=== PATIENT | male | born 1965 | race Caucasian/White ===

== ENCOUNTER → 2017-02-13 | Outpatient (CLI) | payer OTHER ==
[~2017-02-13] MED LIST: BUPR-79 PO; CLX40 PO; CYAN10005 PO; ERGO1CAP35 PO; OMEG10007 PO; PRT/40 PO
[2017-02-13 09:59] LABS: BASO % 0.4 %; BASO ABS # 0.04 K/uL (0-0.2); COMPLETE YES; EOS % 2.5 %; HEMATOCRIT 44.8 % (42-52); IG% 0.3 %; LYMPH % 26.9 %; LYMPH ABS # 2.52 K/uL (1.2-3.4); MEAN CELL VOLUME 92.4 fL (80-100); MEAN CORPUSCULAR HEMOGLOBIN 30.7 pg (25-34); MEAN CORPUSCULAR HGB CONC 33.3 g/dl (32-36); MEAN PLATELET VOLUME 10.4 fL (7.4-10.4); MONO % 9.1 %; NEUT % 60.8 %; PLATELET COUNT 310 K/uL (130-400); RED BLOOD COUNT 4.85 M/uL (4.7-6.1); WHITE BLOOD COUNT 9.37 K/uL (4.8-10.8)
[2017-02-13 11:14] LABS: ALT/SGPT 42 U/L (12-78); BLOOD UREA NITROGEN 13 mg/dl (7-18); BUN/CREATININE RATIO 9.5 (10-20); CALCIUM 9.4 mg/dl (8.5-10.1); CARBON DIOXIDE 25 mmol/L (21-32); CHLORIDE 103 mmol/L (98-107); CHOLESTEROL 188 mg/dl (0-200); GLUCOSE 102 mg/dl (70-99); SODIUM 138 mmol/L (136-145); TRIGLYCERIDES 170 mg/dl (0-150); VERY LOW DENSITY LIPOPROT CALC 34 mg/dl
[2017-02-13 11:18] LABS: ALB/GLOB RATIO 1.1 (0.9-2); ALKALINE PHOSPHATASE 36 U/L (45-117); AST/SGOT 31 U/L (15-37); CHOLESTEROL/HDL RATIO 4.6; HDL CHOLESTEROL 41 mg/dl; LDL CHOLESTEROL CALCULATED 113 mg/dl
== END | disposition home or self-care (01) ==
LOC: C.LAB1850 09:04
PROVIDERS: ATTEND Internal Medicine
DX: E78.5 Hyperlipidemia, unspecified (principal); E53.8 Deficiency of other specified B group vitamins; K76.0 Fatty (change of) liver, not elsewhere classified; E55.9 Vitamin D deficiency, unspecified

== ENCOUNTER → 2017-08-16 | Outpatient (CLI) | payer OTHER ==
[~2017-08-16] MED LIST changes: +PANT40TA2 PO; -PRT/40 PO
[2017-08-16 10:49] LABS: ALBUMIN 3.9 gm/dl (3.4-5.0); ALT/SGPT 38 U/L (12-78); BLOOD UREA NITROGEN 21 mg/dl (7-18); CARBON DIOXIDE 24 mmol/L (21-32); CHOLESTEROL 180 mg/dl (0-200); CREATININE 1.07 mg/dl (0.60-1.40); GLUCOSE 118 mg/dl (70-99); SODIUM 139 mmol/L (136-145)
[2017-08-16 10:52] LABS: ALKALINE PHOSPHATASE 41 U/L (45-117); AST/SGOT 23 U/L (15-37); LDL CHOLESTEROL CALCULATED 107 mg/dl; TOTAL PROTEIN 8.1 gm/dl (6.4-8.2)
== END | disposition home or self-care (01) ==
LOC: C.LAB1850 09:23
PROVIDERS: ATTEND Internal Medicine
DX: K76.0 Fatty (change of) liver, not elsewhere classified (principal)

== ENCOUNTER 2018-07-21 15:11 | Observation (INO) ==
[2018-07-21] MEDS ORDERED: ONDANSETRON INJ 2 MG/ML 2 ML VIAL IV STA (15:38)
[2018-07-21] MEDS ORDERED: SODIUM CHLORIDE 0.9% 1000ML 1,000 ML IV STA (15:38)
[2018-07-21] MEDS ORDERED: MoRPHine SULFATE 4 MG/ML 1 ML CARP\\VIAL IV STA ×2 (15:38→17:00)
[2018-07-21 15:54] LABS: Appearance Urine Clear (Clear); Bilirubin Urine Negative (Negative); Color Urine Yellow; Glucose Urine UA Negative (Negative); Ketones Urine Negative (Negative); Leukocyte Esterase Urine Negative (Negative); Nitrite Urine Negative (Negative); Protein Urine Negative (Negative); Urobilinogen Urine Negative (Negative)
--- NOTE | 2018-07-21 15:55 | Emergency Department Note ---
History of Present Illness General Chief Complaint: Back Pain/Injury Stated Complaint: BACK PAIN Source: patient Mode of arrival: ambulatory Limitations: no limitations History of Present Illness Provider Complaint: other (Right flank pain) Onset (ago): hour(s) 5 Duration: constant Similar Symptoms Previously: No Location: right flank Quality: + other (Severe and constant) Radiation: abdomen Severity: severe Maximum Pain Intensity: 9 Relieved By: + none Exacerbated By: + movement Context: + other (Sitting at rest getting a haircut) Associated symptoms: + chills and + other (Nausea without vomiting); no weakness , no fatigue, no syncope, no numbness, no difficulty walking, no loss of sensation in lower extremities, no increased urinary urgency, no increased urinary frequency, no urinary incontinence, no fecal incontinence, no a change in bowel habits, no dysuria, no hematuria, no parasthesias, no arthralgias and no myalgias Treatments prior to arrival: none Mr. Nguyen is a 53-year-old white male who ambulates into the ED accompanied by a female friend complaining of severe back pain. Patient reports approximately 5 hours prior to arrival at the hospital he was sitting in a chair getting a haircut and developed an acute onset of right flank pain. Since that time his pain has been constant. He has difficulty describing the pain except for "severe." The pain is radiating around the right mid quadrant and lower quadrant. He reports movement of his right back, CVA percussion and palpation of the right mid quadrant and lower quadrant abdomen increases his discomfort. He has not identified any alleviating factors related to his discomfort. He has not taken any medications for his discomfort prior to arrival at the hospital. Associated with his discomfort he has been nauseated, has had chills and has had one episode of diaphoresis; he does not know if he has had a fever. Patient denies upper respiratory symptoms, chest pain, shortness of breath, decreased appetite, urinary symptoms, hematuria, radiation of discomfort into the lower legs, genital paresthesias, bowel and bladder dysfunction, lower extremity weakness/numbness/tingling, diarrhea, constipation, rectal bleeding, black/tarry stools. Home Medications Home Medications Medication Instructions Recorded Confirmed Type bupropion HCl 150 mg PO BID 06/07/18 07/21/18 History cholecalciferol (vitamin D3) 50,000 unit PO WK 06/07/18 07/21/18 History [Optimal D3] citalopram 40 mg PO QAM 06/07/18 07/21/18 History fenofibrate nanocrystallized 145 mg PO QAM 06/07/18 07/21/18 History omega-3 fatty acids-fish oil [Fish 2 cap PO QAM 06/07/18 07/21/18 History Oil] pantoprazole 40 mg PO QAM 06/07/18 07/21/18 History Allergies Allergy/AdvReac Type Severity Reaction Status Date / Time No Known Allergies Allergy Verified 07/21/18 15:30 Past Med/Surg History Medical History Anxiety Depression GERD (gastroesophageal reflux disease) Hyperlipidemia Sleep apnea wears mouth guard, no CPAP Surgical History History of appendectomy History of tooth extraction wisdom teeth Hx of abdominal surgery ruptured spleen "procedure to stop bleeding, filled with foam", was not removed Hx of vasectomy Family History Brother Family history of diabetes mellitus Mother Family history of diabetes mellitus Social History Current Living Situation: Significant Other Current Living Situation Comment: lives with girlfriend Feels Safe at Home: Yes Smoking Status: Never smoker Tobacco Type: smokeless tobacco Hx Alcohol Use: Yes Alcohol type: beer Alcohol Intake Frequency: 3 or more drinks per day Hx Substance Use: No Beliefs That Will Affect Care: None Preferred Language: Malay Communication Ability: Effective Review of Systems A total of 10 systems reviewed and were otherwise negative Physical Exam Vital Signs Vital Signs - 24 hr 07/21/18 15:20 07/21/18 16:03 07/21/18 16:18 Temperature 36.8 C Temperature Source Oral Sepsis Recent Fever Within 48 Hours No Sepsis New/Unexplained Change in Mental Status No Sepsis Action Taken by Nursing No Action Required Pulse Rate 60 Pulse Rate [Left Finger] 56 L Respiratory Rate 18 16 Blood Pressure 166/94 H Blood Pressure [Left Arm] 125/69 Blood Pressure Mean 118 Blood Pressure Mean [Left Arm] 87 Pulse Oximetry 97 92 95 Oxygen Delivery Method Room Air Room Air Room Air 07/21/18 18:02 07/21/18 18:58 07/21/18 20:00 Temperature Temperature Source Sepsis Recent Fever Within 48 Hours Sepsis New/Unexplained Change in Mental Status Sepsis Action Taken by Nursing Pulse Rate Pulse Rate [Left Finger] 61 61 64 Respiratory Rate 20 18 18 Blood Pressure Blood Pressure [Left Arm] 122/73 133/81 144/77 H Blood Pressure Mean Blood Pressure Mean [Left Arm] 89 98 99 Pulse Oximetry 95 98 Oxygen Delivery Method Room Air Room Air 07/21/18 20:52 Temperature Temperature Source Sepsis Recent Fever Within 48 Hours Sepsis New/Unexplained Change in Mental Status Sepsis Action Taken by Nursing Pulse Rate 55 L Pulse Rate [Left Finger] Respiratory Rate 19 Blood Pressure 130/68 Blood Pressure [Left Arm] Blood Pressure Mean Blood Pressure Mean [Left Arm] Pulse Oximetry 94 Oxygen Delivery Method Room Air Constitutional well developed, well nourished, + acute distress, + well hydrated, healthy appearing, cooperative and + overweight; no physical limitations and not diaphoretic Eyes PERRL, conjunctivae normal, anicteric sclerae Neck normal visual inspection and trachea midline Respiratory normal respiratory effort, lungs clear to auscultation Auscultation: no rales, no rhonchi, no wheezes and no pleural rub Cardiovascular Vessels: no JVD Gastrointestinal (Abdomen) Inspection/Auscultation: abdomen normal to inspection and normal bowel sounds; abdomen not distended, no abdominal wall ecchymosis and no visible herniation Percussion/Palpation: + abdomen tender (Right mid quadrant and right lower quadrant) and abdomen soft; no guarding, abdomen not rigid, no hepatosplenomegaly, no hernia and no ascites Musculoskeletal Head/Neck/Chest: normocephalic and head atraumatic Spine: + thoracic spine abnormal to inspection and + lumbar spine abnormal to inspection; no lumbar spinal tenderness and no paraspinal tenderness Extremities: + extremities abnormal to inspection Gait: normal gait Skin no rashes, warm and dry Trauma: no evidence of skin trauma Neurologic awake; not confused Speech / Cognition: normal speech Motor/Sensory: no tremor and no sensory deficit Psychiatric Orientation: alert, oriented x 3 and cooperative Apperance: appropriately dressed Eye Contact: good eye contact Motor Behavior: steady gait and station Speech: speech normal rate, rhythm, volume Genitourinary + CVA tenderness (Right-sided only) Course Administered Medications Discontinued Medications Sodium Chloride (Nss 1000ml) 1,000 mls @ 999 mls/hr IV .Q1H1M STA Stop: 07/21/18 16:38 Last Infusion: 07/21/18 17:18 Dose: 0 mls/hr Admin: 07/21/18 16:12 Dose: 999 mls/hr Morphine Sulfate (Morphine Sulfate) 4 mg IV NOW STA Stop: 07/21/18 15:39 Last Admin: 07/21/18 16:11 Dose: 4 mg Morphine Sulfate (Morphine Sulfate) 4 mg IV NOW STA Stop: 07/21/18 17:01 Last Admin: 07/21/18 17:07 Dose: 4 mg Ondansetron HCl (Zofran) 4 mg IV NOW STA Stop: 07/21/18 15:39 Last Admin: 07/21/18 16:11 Dose: 4 mg Medical Decision Making Differential Diagnosis renal colic, pyelonephritis, AAA, muscular strain, infection and gastrointestinal Medical Records Attestation: I reviewed the patient's medical records. Laboratory Data Attestation: I reviewed the patient's lab results. CBC shows a leukocytosis of 15.97 with a left shift and bandemia, no anemia or platelet dysfunction. BMP: Shows no electrolyte abnormality or renal dysfunction. Glucose was slightly elevated at 112. Lipase: Not elevated. Urinalysis: Shows no signs of infection or hematuria. Point of care lactic acid was elevated to 2.37. Result diagrams: 07/21/18 16:09 07/21/18 16:09 Lab Results 07/21/18 07/21/18 07/21/18 Range/Units 15:40 16:09 16:09 WBC 15.97 H (4.8-10.8) K/uL RBC 4.88 (4.7-6.1) M/uL Hgb 14.8 (14.0-18.0) g/dL Hct 44.3 (42-52) % MCV 90.8 (80-100) fL MCH 30.3 (25-34) pg MCHC 33.4 (32-36) g/dL RDW Std Deviation 42.8 (36.4-46.3) fL RDW Coeff of Moshe 13.0 (11.5-14.5) % Plt Count 287 (130-400) K/uL MPV 10.3 (7.4-10.4) fL Immature Gran % (Auto) 0.3 % Neut % (Auto) 86.2 % Lymph % (Auto) 8.6 % Furn[place] % (Auto) 4.4 % Eos % (Auto) 0.3 % Baso % (Auto) 0.2 % Immature Gran # (Auto) 0.05 H (0.00-0.02) K/uL Neut # (Auto) 13.78 H (1.4-6.5) K/uL Lymph # (Auto) 1.37 (1.2-3.4) K/uL Furn[place] # (Auto) 0.70 H (0.11-0.59) K/uL Eos # (Auto) 0.04 (0-0.5) K/uL Baso # (Auto) 0.03 (0-0.2) K/uL Sodium 136 (136-145) mmol/L Potassium 4.2 (3.5-5.1) mmol/L Chloride 103 (98-107) mmol/L Carbon Dioxide 24 (21-32) mmol/L Anion Gap 9.0 (3-11) BUN 18 (7-18) mg/dl Creatinine 1.32 (0.6-1.4) mg/dl Est Cr Clr Drug Dosing 71.8 ml/min Est GFR ( Amer) 71.9 Est GFR (Non-Af Amer) 62.0 BUN/Creatinine Ratio 13.9 (10-20) Glucose 122 H (70-99) mg/dl POC Lactic Acid Bj (0.90-1.70) mmol/L Calcium 9.6 (8.5-10.1) mg/dl Total Bilirubin 0.3 (0.1-1) mg/dl AST 23 (15-37) U/L ALT 48 (12-78) U/L Alkaline Phosphatase 45 (45-117) U/L Total Protein 8.6 H (6.4-8.2) gm/dl Albumin 4.1 (3.4-5.0) gm/dl Globulin 4.5 H (2.5-4.0) gm/dl Albumin/Globulin Ratio 0.9 (0.9-2) Lipase 165 (73-393) U/L Urine Color Yellow Urine Appearance Clear (Clear) Urine pH 7.0 (4.5-7.5) Ur Specific Herrin 1.020 (1.000-1.030) Urine Protein Negative (Negative) Urine Glucose (UA) Negative (Negative) Urine Ketones Negative (Negative) Urine Blood Negative (Negative) Urine Nitrite Negative (Negative) Urine Bilirubin Negative (Negative) Urine Urobilinogen Negative (Negative) Ur Leukocyte Esterase Negative (Negative) 07/21/18 Range/Units 17:37 WBC (4.8-10.8) K/uL RBC (4.7-6.1) M/uL Hgb (14.0-18.0) g/dL Hct (42-52) % MCV (80-100) fL MCH (25-34) pg MCHC (32-36) g/dL RDW Std Deviation (36.4-46.3) fL RDW Coeff of Moshe (11.5-14.5) % Plt Count (130-400) K/uL MPV (7.4-10.4) fL Immature Gran % (Auto) % Neut % (Auto) % Lymph % (Auto) % [place] % (Auto) % Eos % (Auto) % Baso % (Auto) % Immature Gran # (Auto) (0.00-0.02) K/uL Neut # (Auto) (1.4-6.5) K/uL Lymph # (Auto) (1.2-3.4) K/uL Furn[place] # (Auto) (0.11-0.59) K/uL Eos # (Auto) (0-0.5) K/uL Baso # (Auto) (0-0.2) K/uL Sodium (136-145) mmol/L Potassium (3.5-5.1) mmol/L Chloride (98-107) mmol/L Carbon Dioxide (21-32) mmol/L Anion Gap (3-11) BUN (7-18) mg/dl Creatinine (0.6-1.4) mg/dl Est Cr Clr Drug Dosing ml/min Est GFR ( Amer) Est GFR (Non-Af Amer) BUN/Creatinine Ratio (10-20) Glucose (70-99) mg/dl POC Lactic Acid Bj 2.37 H (0.90-1.70) mmol/L Calcium (8.5-10.1) mg/dl Total Bilirubin (0.1-1) mg/dl AST (15-37) U/L ALT (12-78) U/L Alkaline Phosphatase (45-117) U/L Total Protein (6.4-8.2) gm/dl Albumin (3.4-5.0) gm/dl Globulin (2.5-4.0) gm/dl Albumin/Globulin Ratio (0.9-2) Lipase (73-393) U/L Urine Color Urine Appearance (Clear) Urine pH (4.5-7.5) Ur Specific Herrin (1.000-1.030) Urine Protein (Negative) Urine Glucose (UA) (Negative) Urine Ketones (Negative) Urine Blood (Negative) Urine Nitrite (Negative) Urine Bilirubin (Negative) Urine Urobilinogen (Negative) Ur Leukocyte Esterase (Negative) Imaging Data Attestation: I personally reviewed and interpreted this imaging study as follows : My Impression: Chest x-rays: Shows no acute infiltrates, effusions or pneumothorax. Mild cardiomegaly of. No bony abnormalities. Radiologist's Impression: Noncontrast abdominal/pelvic CT: Was reviewed by myself and read by the radiologist and shows hepatic steatosis, no nephrolithiasis or hydronephrosis, circumferential bladder wall thickening that may indicate chronic bladder obstruction in the setting of prostamegaly, no gross duct dilatation, normal-appearing gallbladder, normal-appearing pancreas, spleen suggested of prior trauma or splenosis, normal-appearing adrenal glands, prostrate is a large likely secondary to benign prostatic hypertrophy, vasectomy clips are noted, bowel shows a few diverticula in the sigmoid colon and descending colon no associated wall thickening or pericolonic inflammatory changes, the appendix was not visualized, no signs of bowel obstruction, feces noted in the distal small bowel suggestive of possible delayed transit, no free fluid or free air, no lymphadenopathy, normal- appearing vasculature, abdominal wall shows diastases to the rectus abdominis and musculoskeletal shows old left-sided rib fractures. Chest x-ray: Radiologist agreed with my impression. Gallbladder ultrasound: Was reviewed by myself and read by the radial showing no intrahepatic biliary duct dilatation, common bile duct measures 4 mm in diameter, gallbladder sludge with small stones in the gallbladder neck without convincing evidence of gallbladder wall thickening, gallbladder distention or perisystolic fluid or inflammatory changes. Normal-appearing right kidney. Radiologist reports the liver is hyperechogenic parenchyma with hererogeneous echotexture likely indicating fibrosis or seatosis, no evidence of hepatic mass and main portal vein is patent with normal directional flow. MDM Narrative Patient is assessed as noted above. Patient's medication list was reviewed. Laboratory testing and CT results are noted above. Patient was initially hydrated with normal saline and treated with 4 mg of morphine IV 4 mg of Zofran IV. Patient reported moderate relief of his pain and resolution of Zofran after his medications. On reassessment after CT scan patient reported he had return of pain but not nausea and he was given additional 4 mg of Zofran IV. Patient's case was reviewed with Dr. Potter; she independently assessed the patient we agreed on diagnostic approach, treatment, disposition and plan. On reassessment patient's lactic acid was elevated to 2.37. A chest x-ray was performed and shows no acute infiltrates, effusions or pneumothorax. A gallbladder ultrasound was performed and shows gallbladder sludge and small stones in the gallbladder neck without convincing evidence of acute cholecystitis. On physical examination patient is now very tender in the right upper quadrant with guarding but not a positive Valladares sign. Patient subjectively reports at this time the pain has increased again. Patient's case was consulted with Dr. Hernandez, general surgery; he reports he would come in and see the patient in consult. Patient's David recommendation was admit for observation, keep n.p.o., HIDA scan in the morning and surgical reevaluation after. Patient was educated about today's findings and instructed on his treatment plan ; he verbalized understanding and agreement with this plan. Impression & Plan Cholelithiasis Discharge Plan Visit Data *Final* Discharge Date/Time: 07/21/18 20:52 Chief Complaint: Back Pain/Injury Stated Complaint: BACK PAIN ED Provider: Keyla Potter ED Midlevel Provider: Michael López Discharge Problem: Cholelithiasis Patient Disposition: Admitted As Inpatient Discharge Instructions Interventions: ED Discharge Assessment Last Done: 07/21/18 20:52
[2018-07-21 16:22] LABS: Basophils # (auto) 0.03 K/uL (0-0.2); Basophils % (auto) 0.2 %; Eosinophils # (auto) 0.04 K/uL (0-0.5); Eosinophils % (auto) 0.3 %; Hematocrit (blood only) 44.3 % (42-52); Hemoglobin 14.8 g/dL (14.0-18.0); Immature Granulocytes # (auto) 0.05 K/uL (0.00-0.02); Immature Granulocytes % (auto) 0.3 %; Lymphocytes # (auto) 1.37 K/uL (1.2-3.4); Lymphocytes % (auto) 8.6 %; Mean Corpuscular Hgb Conc 33.4 g/dL (32-36); Mean Corpuscular Volume 90.8 fL (80-100); Mean Platelet Volume 10.3 fL (7.4-10.4); Monocytes % (auto) 4.4 %; Neutrophils # (auto) 13.78 K/uL (1.4-6.5); Neutrophils % (auto) 86.2 %; Platelet Count 287 K/uL (130-400); RDW Standard Deviation 42.8 fL (36.4-46.3); Red Blood Count 4.88 M/uL (4.7-6.1); White Blood Count 15.97 K/uL (4.8-10.8)
[2018-07-21 16:39] LABS: Albumin Level 4.1 gm/dl (3.4-5.0); BUN Creatinine Ratio 13.9 (10-20); Calcium 9.6 mg/dl (8.5-10.1); Creatinine Clr Calc Pharmacy 71.8 ml/min; Est GFR (African American) 71.9; Potassium 4.2 mmol/L (3.5-5.1)
--- NOTE | 2018-07-21 16:40 | CT Scan Report ---
CT abd pelvis wo con CLINICAL HISTORY: 53 years-old Male presenting with Eval for ureter calculi, right flank pain. TECHNIQUE: Multidetector CT of the abdomen and pelvis was performed without the use of intravenous co ntrast. IV contrast: None. A dose lowering technique was used consistent with the principles of ALARA (as low as reasonably achievable). COMPARISON: None. CT DOSE (mGy.cm): The estimated cumulative dose is 675.46 mGy.cm. FINDINGS: Photovoltaic Fabrication Technician topogram: Vasectomy clips noted. Lung bases: Minimal dependent changes likely atelectasis. Normal heart size. No pericardial or pleura l effusion. Liver: Normal morphology. Density consistent with hepatic steatosis. Biliary: No gross biliary ductal dilatation allowing for noncontrast technique. Normal gallbladder. Pancreas: Normal. Spleen: The appearance of the spleen suggest prior trauma or splenosis. Adrenal glands: Normal. Kidneys and ureters: Normal. No hydronephrosis. Bladder: Circumferential bladder wall thickening. Pelvic organs: Prostate enlargement likely secondary to benign prostatic hyperplasia. Vasectomy clips noted. Bowel: Few diverticula in the sigmoid colon and descending colon. No associated wall thickening or pe ricolonic inflammatory change. Feces noted in the distal small bowel suggesting delayed transit. The appendix is not visualized. No bowel obstruction. Peritoneal cavity: No free fluid or intraperitoneal gas. Lymph nodes: No gross lymphadenopathy allowing for noncontrast technique. Vasculature: Normal noncontrast appearance. Abdominal wall: Diastasis of the rectus abdominis. Musculoskeletal: Old left rib fractures noted. IMPRESSION: 1. Hepatic steatosis. Correlate with liver function tests to exclude steatohepatitis as a cause for abdominal pain. 2. No nephrolithiasis or hydronephrosis. 3. Circumference of bladder wall thickening may indicate chronic bladder obstruction in the setting of prostatomegaly. Electronically signed by: Cirilo Gonzalez M.D. 07/21/2018 4:38 PM
[2018-07-21 16:42] LABS: Albumin Globulin Ratio 0.9 (0.9-2); Bilirubin,Total 0.3 mg/dl (0.1-1); Globulin 4.5 gm/dl (2.5-4.0); Total Protein 8.6 gm/dl (6.4-8.2)
--- NOTE | 2018-07-21 18:40 | Ultrasound Report ---
US abdomen limited CLINICAL HISTORY: 53 years-old Male presenting with RUQ pain. TECHNIQUE: Real-time grayscale and limited color Doppler ultrasound imaging of the abdomen limited to the right upper quadrant was performed. COMPARISON: CT performed earlier today. FINDINGS: Pancreas: Largely obscured due to overlying bowel gas. Liver: Hyperechogenic parenchyma with heterogeneous echotexture, likely indicating fibrosis or steato sis. The liver measures 17.1 cm in maximal sagittal dimension. No sonographic evidence of hepatic mas s. Main portal vein patent with normal directional flow. Biliary: No intrahepatic biliary ductal dilatation. Common bile duct measures up to 4 mm in diameter. Gallbladder: Gallbladder sludge with small gallstones of the gallbladder neck. No evidence of gallbla dder wall thickening, gallbladder distention, or pericholecystic fluid or inflammatory change. Sonogr aphic Valladares's sign negative. Right kidney: Normal in appearance without evidence of hydronephrosis. Ascites: None. Other: None. IMPRESSION: 1. Gallbladder sludge with small gallstones. No biliary ductal dilatation. No convincing evidence of cholecystitis. If there is continuing clinical concern for this diagnosis, nuclear medicine HIDA sca n could be obtained. 2. Hepatic steatosis. Correlate with liver function tests to exclude steatohepatitis as a cause for abdominal pain. Electronically signed by: Cirilo Gonzalez M.D. 07/21/2018 6:38 PM
--- NOTE | 2018-07-21 18:44 | XRay Report ---
XR chest 2V routine CLINICAL HISTORY: 53 years-old Male presenting with cough x 1 month. TECHNIQUE: PA and lateral views of the chest were obtained. COMPARISON: None. FINDINGS: Cardiac silhouette mildly enlarged. Lungs and pleural spaces clear. Multiple subacute to chronic late ral left rib fractures involving the fourth through 10th ribs. Upper abdomen normal. IMPRESSION: 1. Mild cardiomegaly. No other convincing evidence of acute cardiopulmonary disease. 2. Subacute to chronic posterior lateral left rib fractures. Electronically signed by: Cirilo Gonzalez M.D. 07/21/2018 6:43 PM
--- NOTE | 2018-07-21 19:36 | Emergency Department Note ---
ED Visit Note Patient seen and examined at bedside after discussion with the physician assistant branch operations manager. Please refer to his note for additional details. Concern after initial story suggestive of possible renal colic, with negative CT and urine, and leukocytosis noted. On my bedside evaluation, patient had persistent right upper quadrant tenderness, also complained of one month of cough. Due to this I added a right upper quadrant ultrasound as well as a chest x-ray. Patient's ultrasound did not reveal acute cholecystitis, however he did have stones and sludge, and given white count and persistent pain, the physician assistant branch operations manager contacted general surgery university relations vice president who evaluated the patient and felt patient should be admitted for additional monitoring and a HIDA scan to determine if surgery was needed. Patient hemodynamically stable here, pain improved with pain medication although patient required multiple doses. .
--- NOTE | 2018-07-21 20:27 | History & Physical Report ---
Date of Service July 21, 2018 Assessment & Plan (1) Abdominal pain: Mr. Nguyen is a 53-year-old gentleman with a history of anxiety, depression , GERD, hypercholesterolemia, and obstructive sleep apnea who presented to [facility] due to sudden onset of right flank pain that radiated to the front of his abdomen. He received a 1 L normal saline bolus, 4 mg of morphine x2 and Zofran in the emergency department. -Admit to med/surg -Does not meet SIRS criteria, but laboratory studies point towards infection. Elevated white cell count of 15.9 and lactate of 2.37 -Continue to trend lactate -CT abdomen pelvis shows hepatic steatosis, but no nephrolithiasis -Abdominal ultrasound shows gallbladder sludge and small gallstones, without evidence for cholecystitis or ductal dilation -Normal LFTs, and despite ultrasound w/out evidence for cholecystitis - examination is suspicious for cholecystitis -N.p.o., with HIDA scan to evaluate further tomorrow -Consult surgery -Begin Rocephin for empiric coverage. Cultures drawn in ED and pending -4 mg morphine q6h prn pain, 4 mg Zofran q6h prn nausea -Normal saline at 125 mls/hr (2) GERD (gastroesophageal reflux disease): -Continue pantoprazole (3) Hypercholesterolemia: -Continue fenofibrate and omega-3 fatty acids (4) Depression: -Continue bupropion and citalopram (5) RICK (obstructive sleep apnea): -Patient states he does not use CPAP (6) Alcohol use: -Patient is a daily drinker, does not have a history of alcohol withdrawal -Administer banana bag x1 -Low threshold to place on alcohol withdrawal protocol CODE STATUS: Full Disposition: Admit to med/surg DVT prophylaxis: Lovenox 40 mg SQ Q24h F/E/N: NPO. Banana bag IV x1, then NS at 125 mls/hr. No electrolyte abnormalities noted. History of Present Illness Primary Care Provider: Matti Husain MD Mr. Nguyen is a 53-year-old gentleman with a history of anxiety, depression, GERD , hypercholesterolemia, and obstructive sleep apnea who presented to [facility] due to sudden onset of right flank pain that radiated to the front of his abdomen. He states that he was at his florez at 10 AM when he had the sudden onset of 9/10 right flank pain that radiated to the right side of his abdomen. He states the pain was constant, and felt like gas pain. Denies fever or chills, but states that at this time he broke out into a sweat. He also reports feeling nauseous, with dry heaves. He has never had this kind of pain before. He denies chest pain, shortness of breath, palpitations. He states that his last bowel movement was about 15 minutes prior to the start of this pain and was normal. He ate breakfast at 9 AM this morning, and states that he ate carrera and a louise. Prior to this, he states that he has been feeling well. His appetite had been normal. He denies any sick contacts, or recent travel. Denies urinary symptoms , such as dysuria or hematuria. He denies a history of prior back problems, or trouble with his gallbladder. He has no cardiac history, and has no trouble with chest pain on exertion. Of note, he is a non-smoker and does not use recreational drugs. He states that he drinks about 25 beers a week, and states that he has cut back recently. He drinks on a daily basis, and his last drink was last night. He denies a history of alcohol withdrawals. At the time of my exam, he states his pain is down to a 5/10. He reports improvement in his pain with morphine. Allergies Allergy/AdvReac Type Severity Reaction Status Date / Time No Known Allergies Allergy Verified 07/21/18 15:30 Home Medications Home Medications Medication Instructions Recorded Confirmed Type bupropion HCl 150 mg PO BID 06/07/18 07/21/18 History cholecalciferol (vitamin D3) 50,000 unit PO WK 06/07/18 07/21/18 History [Optimal D3] citalopram 40 mg PO QAM 06/07/18 07/21/18 History fenofibrate nanocrystallized 145 mg PO QAM 06/07/18 07/21/18 History omega-3 fatty acids-fish oil [Fish 2 cap PO QAM 06/07/18 07/21/18 History Oil] pantoprazole 40 mg PO QAM 06/07/18 07/21/18 History Past Med/Surg History Medical History Anxiety Depression GERD (gastroesophageal reflux disease) Hyperlipidemia Sleep apnea wears mouth guard, no CPAP Surgical History History of appendectomy History of tooth extraction wisdom teeth Hx of abdominal surgery ruptured spleen "procedure to stop bleeding, filled with foam", was not removed Hx of vasectomy Family History Brother Family history of diabetes mellitus Mother Family history of diabetes mellitus Social History Current Living Situation: Other Current Living Situation Comment: Lives with girlfriend Other Information That Helps Us Care for You: No Feels Safe at Home: Yes Safety Concerns: Feels Safe At This Time Smoking Status: Never smoker Do You Dip or Chew Tobacco: Yes Second Hand Exposure: No Tobacco Cessation Education Requested by Patient: No Hx Alcohol Use: Yes Alcohol type: beer Alcohol Intake Frequency: 3 or more drinks per day Hx Substance Use: No Beliefs That Will Affect Care: None Preferred Language: Armenian Communication Ability: Effective Spanner Operator Required: No Review of Systems Constitutional: + sweats; no fever, no chills, no fatigue and no anorexia Ear, Nose, Mouth, Throat: + nasal congestion Respiratory: no cough, no dyspnea, no hemoptysis and no wheezing Cardiovascular: no chest pain, no dyspnea, no palpitations, no syncope, no edema and no calf pain Gastrointestinal: + abdominal pain and + nausea; no vomiting, no coffee ground emesis and no change in bowel habits Genitourinary (Male): + flank pain; no dysuria, no urinary frequency, no urinary hesitancy and no hematuria Musculoskeletal: + back pain Integumentary: no rash Physical Exam 2 Vital Signs (Past 24 Hours): Last Vital Signs Temp 36.8 C 07/21/18 15:20 Pulse 61 07/21/18 18:58 Resp 18 07/21/18 18:58 BP 133/81 07/21/18 18:58 Pulse Ox 95 07/21/18 18:58 Constitutional: WD/WN, vitals as above appears uncomfortable. dry mucous membranes Eyes: PERRL, conjunctivae normal, anicteric sclerae Respiratory: normal respiratory effort, lungs clear to auscultation Cardiovascular: RRR, no murmur, no edema Extremities: no calf tenderness and no edema Gastrointestinal (Abdomen): Inspection/Auscultation: + abdomen distended Percussion/Palpation: + abdomen tender (tender over right side of abdomen, worst in RUQ) and + abdomen firm; no guarding and abdomen not rigid Valladares's sign negative Skin: no rashes, warm and dry Psychiatric: A+Ox3, euthymic affect Results & Data Laboratory Results Laboratory Results - last 24 hr 07/21/18 07/21/18 07/21/18 15:40 16:09 16:09 WBC 15.97 H RBC 4.88 Hgb 14.8 Hct 44.3 MCV 90.8 MCH 30.3 MCHC 33.4 RDW Std Deviation 42.8 RDW Coeff of Moshe 13.0 Plt Count 287 MPV 10.3 Immature Gran % (Auto) 0.3 Neut % (Auto) 86.2 Lymph % (Auto) 8.6 [place]alf[place] % (Auto) 4.4 Eos % (Auto) 0.3 Baso % (Auto) 0.2 Immature Gran # (Auto) 0.05 H Neut # (Auto) 13.78 H Lymph # (Auto) 1.37 [place] # (Auto) 0.70 H Eos # (Auto) 0.04 Baso # (Auto) 0.03 Sodium 136 Potassium 4.2 Chloride 103 Carbon Dioxide 24 Anion Gap 9.0 BUN 18 Creatinine 1.32 Est Cr Clr Drug Dosing 71.8 Est GFR ( Amer) 71.9 Est GFR (Non-Af Amer) 62.0 BUN/Creatinine Ratio 13.9 Glucose 122 H POC Lactic Acid Bj Calcium 9.6 Total Bilirubin 0.3 AST 23 ALT 48 Alkaline Phosphatase 45 Total Protein 8.6 H Albumin 4.1 Globulin 4.5 H Albumin/Globulin Ratio 0.9 Lipase 165 Urine Color Yellow Urine Appearance Clear Urine pH 7.0 Ur Specific [place] 1.020 Urine Protein Negative Urine Glucose (UA) Negative Urine Ketones Negative Urine Blood Negative Urine Nitrite Negative Urine Bilirubin Negative Urine Urobilinogen Negative Ur Leukocyte Esterase Negative 07/21/18 17:37 WBC RBC Hgb Hct MCV MCH MCHC RDW Std Deviation RDW Coeff of Moshe Plt Count MPV Immature Gran % (Auto) Neut % (Auto) Lymph % (Auto) [place] % (Auto) Eos % (Auto) Baso % (Auto) Immature Gran # (Auto) Neut # (Auto) Lymph # (Auto) [place] # (Auto) Eos # (Auto) Baso # (Auto) Sodium Potassium Chloride Carbon Dioxide Anion Gap BUN Creatinine Est Cr Clr Drug Dosing Est GFR ( Amer) Est GFR (Non-Af Amer) BUN/Creatinine Ratio Glucose POC Lactic Acid Bj 2.37 H Calcium Total Bilirubin AST ALT Alkaline Phosphatase Total Protein Albumin Globulin Albumin/Globulin Ratio Lipase Urine Color Urine Appearance Urine pH Ur Specific [place] Urine Protein Urine Glucose (UA) Urine Ketones Urine Blood Urine Nitrite Urine Bilirubin Urine Urobilinogen Ur Leukocyte Esterase Supervising Physician Co-Signing Physician Notes Patient seen and examined, chart reviewed, case discussed with Dr. Carrero and I agree with her assessment and plan as documented above. Briefly patient is a 53-year-old male with history of GERD, hyperlipidemia, anxiety presenting with acute onset of right flank pain and abdominal pain that occurred approximately 10:00 this morning. Pain associated with nausea, chills , diaphoresis. He denies fever, chest pain, shortness of breath. Denies dysuria. No history of renal stones or gall bladder disease. On physical exam he is afebrile, hemodynamically stable, nontoxic in appearance. Gen: AA&O HEENT: NC/AT, PERRL, EOMI, MMM, neck supple, no JVD Heart: +S1/S2, regular, no m/r/g Lungs: CTA, no rales/rhonchi/wheezes Abd: +BS, soft, nondistended, some voluntary guarding, +Right CVA tenderness as well as right sided abdominal pain. No rebound or peritoneal signs Ext: no edema Labs and images reviewed. Significant for elevated WBC=15.97, neutrophil predominant, Lactate=2.9 Imaging reveals hepatic steatosis. LFTs WNL. UA unremarkable. Assessment/Plan: 53yo male presenting with acute onset right flank and abdominal pain , possibly secondary to cholecystitis. Will admit to Med-Surg, HIDA Scan in AM, Surgery consult - appreciate assistance with this case. Pain and Nausea control PRN. Ceftriaxone daily. Remainder of plan as above. Resident Activity Tracking Resident Involvement: Resident Care Provided Care Provided: Adult [facility] Medicine
[2018-07-21] MEDS ORDERED: ACETAMINOPHEN 325 MG TAB PO PRN (21:06)
[2018-07-21] MEDS ORDERED: ONDANSETRON INJ 2 MG/ML 2 ML VIAL IV PRN (21:06)
[2018-07-21] MEDS ORDERED: MULTI-VITAMIN INFUSION 10 ML, THIAMINE HCL 100 MG, FOLIC ACID 1 MG in SODIUM CHLORIDE 0... IV ONE ×2 (21:30→22:25)
[2018-07-21] MEDS: cefTRIAXone SODIUM 1,000 MG in DEXTROSE 5% 50 ML IV SCH (21:45)
[2018-07-21] MEDS: MoRPHine SULFATE 4 MG/ML 1 ML CARP\\VIAL IV PRN (21:52)
[2018-07-21 22:11] LABS: Prothrombin Time 9.9 Seconds (9.0-12.0)
[2018-07-21] MEDS: BuPROPion SR 150 MG TABCR PO SCH (22:40)
[2018-07-21] MEDS ORDERED: ENOXAPARIN INJ 40 MG/0.4 ML SYR SQ SCH (23:00)
[2018-07-22] MEDS: SODIUM CHLORIDE 0.9% 1000ML 1,000 ML IV SCH ×4 (03:37→23:29)
[2018-07-22] MEDS: MoRPHine SULFATE 4 MG/ML 1 ML CARP\\VIAL IV PRN ×3 (03:57→18:50)
[2018-07-22 06:45] LABS: Basophils # (auto) 0.02 K/uL (0-0.2); Basophils % (auto) 0.2 %; Eosinophils # (auto) 0.15 K/uL (0-0.5); Eosinophils % (auto) 1.3 %; Hematocrit (blood only) 39.8 % (42-52); Hemoglobin 13.2 g/dL (14.0-18.0); Immature Granulocytes # (auto) 0.02 K/uL (0.00-0.02); Immature Granulocytes % (auto) 0.2 %; Lymphocytes # (auto) 2.31 K/uL (1.2-3.4); Lymphocytes % (auto) 19.6 %; Mean Corpuscular Hgb Conc 33.2 g/dL (32-36); Mean Corpuscular Volume 91.7 fL (80-100); Mean Platelet Volume 9.9 fL (7.4-10.4); Monocytes # (auto) 0.74 K/uL (0.11-0.59); Monocytes % (auto) 6.3 %; Neutrophils # (auto) 8.57 K/uL (1.4-6.5); Neutrophils % (auto) 72.4 %; Platelet Count 237 K/uL (130-400); RDW Coefficient of Variation 13.1 % (11.5-14.5); RDW Standard Deviation 43.8 fL (36.4-46.3); Red Blood Count 4.34 M/uL (4.7-6.1); White Blood Count 11.81 K/uL (4.8-10.8)
[2018-07-22 07:19] LABS: Albumin Level 3.2 gm/dl (3.4-5.0); BUN Creatinine Ratio 13.1 (10-20); Calcium 8.3 mg/dl (8.5-10.1); Creatinine Clr Calc Pharmacy 87.8 ml/min; Est GFR (African American) 91.6; Potassium 3.8 mmol/L (3.5-5.1)
[2018-07-22 07:26] LABS: Albumin Globulin Ratio 0.8 (0.9-2); Bilirubin,Total 1.1 mg/dl (0.1-1); Total Protein 7.2 gm/dl (6.4-8.2)
--- NOTE | 2018-07-22 08:00 | Family Medicine Progress Note ---
Date of Service July 22, 2018 Assessment & Plan (1) Abdominal pain: 53yo male with pMHx HLD, GERD, RICK, EtOH use who presented to [facility] with sudden onset of right flank pain that radiated to the front of his abdomen and admitted for concerns of cholecystisis. He received a 1 L normal saline bolus, 4 mg of morphine x2 and Zofran in the emergency department. Labs consistent with infection, although not meeting SIRS criteria. On admission : WBC 15.97, lactate of 2.37, peaked at 2.9, LFTs initially WNL --> deranged in AM CT abdo/pelvis with hepatic steatosis, but no nephrolithiasis. Abdo U/S with GB sludge and small gallstones, without evidence for cholecystitis or ductal dilation. Gen surg consulted, recs appreciate. - NPO with IVF NSS @ 125cc/hr - HIDA scan pending - per gen surg, if positive, patient for lap sander with possible cholangiogram tomorrow (If so, patient will remain NPO after midnight) - Continue empiric coverage with IV ceftriaxone. Blood Cx pending. - Symptom mx: IV morphine 4mg q6h prn pain, IV Zofran 4mg q6h prn nausea (2) Alcohol use: Patient is a daily drinker, does not have a history of alcohol withdrawal. s/p banana bag x 2 - AWSS at risk protocol with lorazepam initiated - IVF as above - B12 and folate ordered - Start daily PO thiamine and multivitamin (3) GERD (gastroesophageal reflux disease): - Continue home pantoprazole (4) Hypercholesterolemia: -Continue home fenofibrate and omega-3 fatty acids (5) Depression: - Continue bupropion and citalopram (6) RICK (obstructive sleep apnea): Patient states he does not use CPAP - Continue use of mouth guard (7) VTE (venous thromboembolism): - Enoxaparin 40 mg SQ Q24h dc/ed in view of possible surgical intervention. SCDs ordered. F/E/N: NPO. IVF NSS at 125 mls/hr. No electrolyte abnormalities noted. For regular diet when appropriate. Disposition: Continue monitoring on med/surg CODE STATUS: Full Supervising Physician Co-Signing Physician Notes Resident Physician Supervision Note: I independently interviewed and examined the patient and verified the correa history and physical, reviewed labs and image studies, discussed the case with the resident Dr. López and agree with the findings and care plan. Subjective Patient assessed at bedside. States improvement of pain and nausea since arrival at hospital. Denies acute overnight events including fevers, chills, headaches, chest pain, dyspnea. States he has intermittent night sweats which are chronic. Has ongoing RUQ abdominal pain with severity reduced to 5/10, from 10/10 prior to admission. It is more crampy in description than sharp now. His pain does not change with position. He continues to pass gas and his last BM was yesterday. He denies issues with voiding or ambulation. He denies symptoms of alcohol withdrawal including diaphoresis, palpitations, agitation, tremors etc. Review of Systems All systems reviewed & are unremarkable except as noted in HPI & below Physical Exam 2 Vital Signs (Past 24 Hours): Last Vital Signs Temp 36.9 C 07/22/18 07:15 Pulse 55 L 07/22/18 07:15 Resp 16 07/22/18 07:15 BP 107/67 07/22/18 07:15 Pulse Ox 95 07/22/18 07:15 Constitutional: WD/WN, vitals as above + obese; no acute distress, not ill appearing and no altered mental status Eyes: PERRL, conjunctivae normal, anicteric sclerae ENMT: external ear and nose normal, oropharynx normal Mouth: no oral mucosal abnormality Neck: normal visual inspection Respiratory: normal respiratory effort, lungs clear to auscultation no cough Auscultation: no crackles and no wheezes Cardiovascular: RRR, no murmur, no edema Heart Sounds: normal S1 and normal S2 Extremities: normal capillary refill; no calf tenderness and no edema Gastrointestinal (Abdomen): Inspection/Auscultation: abdomen normal to inspection, + abdomen distended and normal bowel sounds Percussion/Palpation : + abdomen tender (RUQ, without rebound, Valladares's +) and abdomen soft; no guarding and abdomen not rigid Musculoskeletal: Head/Neck/Chest: normocephalic, head atraumatic and neck supple Extremities: extremities normal to inspection; no cyanosis and no clubbing Skin: no rashes, warm and dry Neurologic: normal touch/pain/proprioception, CN's II-XI intact bilaterally and moves all extremities; no focal motor deficits Speech / Cognition: normal speech Psychiatric: A+Ox3, euthymic affect Results & Data Laboratory Results Laboratory Results - last 24 hr 07/21/18 07/21/18 07/21/18 15:40 16:09 16:09 WBC 15.97 H RBC 4.88 Hgb 14.8 Hct 44.3 MCV 90.8 MCH 30.3 MCHC 33.4 RDW Std Deviation 42.8 RDW Coeff of Moshe 13.0 Plt Count 287 MPV 10.3 Immature Gran % (Auto) 0.3 Neut % (Auto) 86.2 Lymph % (Auto) 8.6 [place] % (Auto) 4.4 Eos % (Auto) 0.3 Baso % (Auto) 0.2 Immature Gran # (Auto) 0.05 H Neut # (Auto) 13.78 H Lymph # (Auto) 1.37 [place] # (Auto) 0.70 H Eos # (Auto) 0.04 Baso # (Auto) 0.03 PT INR Sodium 136 Potassium 4.2 Chloride 103 Carbon Dioxide 24 Anion Gap 9.0 BUN 18 Creatinine 1.32 Est Cr Clr Drug Dosing 71.8 Est GFR ( Amer) 71.9 Est GFR (Non-Af Amer) 62.0 BUN/Creatinine Ratio 13.9 Glucose 122 H POC Lactic Acid Bj Lactate Calcium 9.6 Total Bilirubin 0.3 AST 23 ALT 48 Alkaline Phosphatase 45 Total Protein 8.6 H Albumin 4.1 Globulin 4.5 H Albumin/Globulin Ratio 0.9 Lipase 165 Urine Color Yellow Urine Appearance Clear Urine pH 7.0 Ur Specific [place] 1.020 Urine Protein Negative Urine Glucose (UA) Negative Urine Ketones Negative Urine Blood Negative Urine Nitrite Negative Urine Bilirubin Negative Urine Urobilinogen Negative Ur Leukocyte Esterase Negative 07/21/18 07/21/18 07/21/18 16:09 17:37 22:58 WBC RBC Hgb Hct MCV MCH MCHC RDW Std Deviation RDW Coeff of Moshe Plt Count MPV Immature Gran % (Auto) Neut % (Auto) Lymph % (Auto) [place] % (Auto) Eos % (Auto) Baso % (Auto) Immature Gran # (Auto) Neut # (Auto) Lymph # (Auto) [place] # (Auto) Eos # (Auto) Baso # (Auto) PT 9.9 INR 1.0 Sodium Potassium Chloride Carbon Dioxide Anion Gap BUN Creatinine Est Cr Clr Drug Dosing Est GFR ( Amer) Est GFR (Non-Af Amer) BUN/Creatinine Ratio Glucose POC Lactic Acid Bj 2.37 H Lactate 2.9 H* Calcium Total Bilirubin AST ALT Alkaline Phosphatase Total Protein Albumin Globulin Albumin/Globulin Ratio Lipase Urine Color Urine Appearance Urine pH Ur Specific [place] Urine Protein Urine Glucose (UA) Urine Ketones Urine Blood Urine Nitrite Urine Bilirubin Urine Urobilinogen Ur Leukocyte Esterase 07/22/18 07/22/18 07/22/18 06:28 06:28 06:28 WBC 11.81 H RBC 4.34 L Hgb 13.2 L Hct 39.8 L MCV 91.7 MCH 30.4 MCHC 33.2 RDW Std Deviation 43.8 RDW Coeff of Moshe 13.1 Plt Count 237 MPV 9.9 Immature Gran % (Auto) 0.2 Neut % (Auto) 72.4 Lymph % (Auto) 19.6 [place] % (Auto) 6.3 Eos % (Auto) 1.3 Baso % (Auto) 0.2 Immature Gran # (Auto) 0.02 Neut # (Auto) 8.57 H Lymph # (Auto) 2.31 [place] # (Auto) 0.74 H Eos # (Auto) 0.15 Baso # (Auto) 0.02 PT INR Sodium 136 Potassium 3.8 Chloride 104 Carbon Dioxide 25 Anion Gap 7.0 BUN 14 Creatinine 1.08 Est Cr Clr Drug Dosing 87.8 Est GFR ( Amer) 91.6 Est GFR (Non-Af Amer) 79.0 BUN/Creatinine Ratio 13.1 Glucose 107 H POC Lactic Acid Bj Lactate 1.9 Calcium 8.3 L Total Bilirubin 1.1 H D AST 159 H ALT 108 H Alkaline Phosphatase 48 Total Protein 7.2 Albumin 3.2 L Globulin 4.0 Albumin/Globulin Ratio 0.8 L Lipase Urine Color Urine Appearance Urine pH Ur Specific [place] Urine Protein Urine Glucose (UA) Urine Ketones Urine Blood Urine Nitrite Urine Bilirubin Urine Urobilinogen Ur Leukocyte Esterase Diagnostic Findings XR chest 2V routine FINDINGS: Cardiac silhouette mildly enlarged. Lungs and pleural spaces clear. Multiple subacute to chronic lateral left rib fractures involving the fourth through 10th ribs. Upper abdomen normal. IMPRESSION: 1. Mild cardiomegaly. No other convincing evidence of acute cardiopulmonary disease. 2. Subacute to chronic posterior lateral left rib fractures. CT abd pelvis wo con FINDINGS: Stock Shaper topogram: Vasectomy clips noted. Lung bases: Minimal dependent changes likely atelectasis. Normal heart size. No pericardial or pleural effusion. Liver: Normal morphology. Density consistent with hepatic steatosis. Biliary: No gross biliary ductal dilatation allowing for noncontrast technique. Normal gallbladder. Pancreas: Normal. Spleen: The appearance of the spleen suggest prior trauma or splenosis. Adrenal glands: Normal. Kidneys and ureters: Normal. No hydronephrosis. Bladder: Circumferential bladder wall thickening. Pelvic organs: Prostate enlargement likely secondary to benign prostatic hyperplasia. Vasectomy clips noted. Bowel: Few diverticula in the sigmoid colon and descending colon. No associated wall thickening or pericolonic inflammatory change. Feces noted in the distal small bowel suggesting delayed transit. The appendix is not visualized. No bowel obstruction. Peritoneal cavity: No free fluid or intraperitoneal gas. Lymph nodes: No gross lymphadenopathy allowing for noncontrast technique. Vasculature: Normal noncontrast appearance. Abdominal wall: Diastasis of the rectus abdominis. Musculoskeletal: Old left rib fractures noted. IMPRESSION: 1. Hepatic steatosis. Correlate with liver function tests to exclude steatohepatitis as a cause for abdominal pain. 2. No nephrolithiasis or hydronephrosis. 3. Circumference of bladder wall thickening may indicate chronic bladder obstruction in the setting of prostatomegaly. US abdomen limited FINDINGS: Pancreas: Largely obscured due to overlying bowel gas. Liver: Hyperechogenic parenchyma with heterogeneous echotexture, likely indicating fibrosis or steatosis. The liver measures 17.1 cm in maximal sagittal dimension. No sonographic evidence of hepatic mass. Main portal vein patent with normal directional flow. Biliary: No intrahepatic biliary ductal dilatation. Common bile duct measures up to 4 mm in diameter. Gallbladder: Gallbladder sludge with small gallstones of the gallbladder neck. No evidence of gallbladder wall thickening, gallbladder distention, or pericholecystic fluid or inflammatory change. Sonographic Valladares's sign negative. Right kidney: Normal in appearance without evidence of hydronephrosis. Ascites: None. Other: None. IMPRESSION: 1. Gallbladder sludge with small gallstones. No biliary ductal dilatation. No convincing evidence of cholecystitis. If there is continuing clinical concern for this diagnosis, nuclear medicine HIDA scan could be obtained. 2. Hepatic steatosis. Correlate with liver function tests to exclude steatohepatitis as a cause for abdominal pain. Resident Activity Tracking Resident Involvement: Resident Care Provided Care Provided: [facility] Medicine _ (1) Abdominal pain Abdominal location: right upper quadrant Qualified Code(s): R10.11 - Right upper quadrant pain
[2018-07-22] MEDS: FENOFIBRATE NANOCRYSTALLIZED 145 MG TABLET PO SCH (08:27)
[2018-07-22] MEDS: BuPROPion SR 150 MG TABCR PO SCH ×2 (08:27→21:02)
[2018-07-22] MEDS: CITALOPRAM 40 MG TAB PO SCH (08:27)
[2018-07-22] MEDS: PANTOprazole 40 MG TAB PO SCH (08:27)
--- NOTE | 2018-07-22 08:45 | Surgery Consultation ---
Date of Consultation July 22, 2018 Assessment & Plan (1) Abdominal pain: 53-year-old male with cholelithiasis with possible cholecystitis, HIDA scan pending. His LFTs did increase this morning. He also has a heavy alcohol use history and appears to be at risk for withdrawal. Awaiting results of HIDA scan Tentatively plan for laparoscopic cholecystectomy with possible cholangiogram tomorrow if results are positive Continue to trend LFTs Discussed the risks of cholecystectomy to include but not limited to bleeding, infection, retained stone, bile leak, conversion to open, need for future more extensive surgery, damage to surrounding structures including common bile duct, and risks of anesthesia Recommend alcohol withdrawal protocol as patient appears to be at high risk for alcohol withdrawal Present on Admission?: Yes (2) Alcohol use: History of Present Illness Attending Physician: Melanie Blackmon, History of Present Illness 53-year-old male presented to the emergency department yesterday evening with sudden onset severe abdominal pain. Started while at the [employer] shop around 10: 00 yesterday morning. He had carrera and sausage louise for breakfast. He developed severe flank pain that radiated to his right side of his abdomen. He never had pain like this before. Denies any history of postprandial pain. He did have some nausea. Evaluation in the ER included a CT scan for rule out kidney stone which is relatively negative except for some hepatic steatosis. He had a right upper quadrant ultrasound that showed some biliary sludge and a few small gallstones, but no evidence of cholecystitis or choledocholithiasis. His LFTs were normal but he had an elevated white count and slightly elevated lactic acid. He was admitted to the medicine team is pending a HIDA scan this morning. He is still having the pain that was somewhat improved. His LFTs did increase including his bilirubin. He reports a heavy alcohol history and he admits to shaking and anxiety if he does not have a drink for an extended period of time. Allergies Allergy/AdvReac Type Severity Reaction Status Date / Time No Known Allergies Allergy Verified 07/21/18 15:30 Home Medications Home Medications Medication Instructions Recorded Confirmed Type bupropion HCl 150 mg PO BID 06/07/18 07/21/18 History cholecalciferol (vitamin D3) 50,000 unit PO WK 06/07/18 07/21/18 History [Optimal D3] citalopram 40 mg PO QAM 06/07/18 07/21/18 History fenofibrate nanocrystallized 145 mg PO QAM 06/07/18 07/21/18 History omega-3 fatty acids-fish oil [Fish 2 cap PO QAM 06/07/18 07/21/18 History Oil] pantoprazole 40 mg PO QAM 06/07/18 07/21/18 History Patient History Medical History Anxiety Depression GERD (gastroesophageal reflux disease) Hyperlipidemia Sleep apnea wears mouth guard, no CPAP Surgical History History of appendectomy History of tooth extraction wisdom teeth Hx of abdominal surgery ruptured spleen "procedure to stop bleeding, filled with foam", was not removed Hx of vasectomy Family History Brother Family history of diabetes mellitus Mother Family history of diabetes mellitus Social History Current Living Situation: Other Current Living Situation Comment: Lives with girlfriend Other Information That Helps Us Care for You: No Feels Safe at Home: Yes Safety Concerns: Feels Safe At This Time Smoking Status: Never smoker Do You Dip or Chew Tobacco: Yes Second Hand Exposure: No Tobacco Cessation Education Requested by Patient: No Hx Alcohol Use: Yes Alcohol type: beer Alcohol Intake Frequency: 3 or more drinks per day Hx Substance Use: No Beliefs That Will Affect Care: None Preferred Language: Lao Communication Ability: Effective Material Attendant Required: No Review of Systems 10 point review of systems negative except as above Physical Exam 2 Vital Signs (Past 24 Hours): Last Vital Signs Temp 36.9 C 07/22/18 07:15 Pulse 55 L 07/22/18 07:15 Resp 16 07/22/18 07:15 BP 107/67 07/22/18 07:15 Pulse Ox 95 07/22/18 07:15 Constitutional: WD/WN, vitals as above no acute distress Eyes: PERRL, conjunctivae normal, anicteric sclerae ENMT: external ear and nose normal, oropharynx normal Neck: trachea midline, no thyromegaly Respiratory: normal respiratory effort, lungs clear to auscultation Cardiovascular: RRR, no murmur, no edema Gastrointestinal (Abdomen): Abdomen soft, rotund, tender to palpation in the right upper quadrant, negative Valladares sign. Right lower quadrant incision well- healed. Musculoskeletal: no cyanosis or clubbing, extremities motor strength 5/5 Skin: no rashes, warm and dry Neurologic: PERRL, EOMI, accommodation nl, no face palsy, no dysarthria Psychiatric: A+Ox3, euthymic affect Affect: + anxious affect Lymphatic: no cervical or axillary lymphadenopathy Results & Data Laboratory Results Laboratory Results - last 24 hr 07/21/18 07/21/18 07/21/18 15:40 16:09 16:09 WBC 15.97 H RBC 4.88 Hgb 14.8 Hct 44.3 MCV 90.8 MCH 30.3 MCHC 33.4 RDW Std Deviation 42.8 RDW Coeff of Moshe 13.0 Plt Count 287 MPV 10.3 Immature Gran % (Auto) 0.3 Neut % (Auto) 86.2 Lymph % (Auto) 8.6 Page % (Auto) 4.4 Eos % (Auto) 0.3 Baso % (Auto) 0.2 Immature Gran # (Auto) 0.05 H Neut # (Auto) 13.78 H Lymph # (Auto) 1.37 Page # (Auto) 0.70 H Eos # (Auto) 0.04 Baso # (Auto) 0.03 PT INR Sodium 136 Potassium 4.2 Chloride 103 Carbon Dioxide 24 Anion Gap 9.0 BUN 18 Creatinine 1.32 Est Cr Clr Drug Dosing 71.8 Est GFR ( Amer) 71.9 Est GFR (Non-Af Amer) 62.0 BUN/Creatinine Ratio 13.9 Glucose 122 H POC Lactic Acid Bj Lactate Calcium 9.6 Total Bilirubin 0.3 AST 23 ALT 48 Alkaline Phosphatase 45 Total Protein 8.6 H Albumin 4.1 Globulin 4.5 H Albumin/Globulin Ratio 0.9 Lipase 165 Urine Color Yellow Urine Appearance Clear Urine pH 7.0 Ur Specific [place] 1.020 Urine Protein Negative Urine Glucose (UA) Negative Urine Ketones Negative Urine Blood Negative Urine Nitrite Negative Urine Bilirubin Negative Urine Urobilinogen Negative Ur Leukocyte Esterase Negative 07/21/18 07/21/18 07/21/18 16:09 17:37 22:58 WBC RBC Hgb Hct MCV MCH MCHC RDW Std Deviation RDW Coeff of Moshe Plt Count MPV Immature Gran % (Auto) Neut % (Auto) Lymph % (Auto) Page % (Auto) Eos % (Auto) Baso % (Auto) Immature Gran # (Auto) Neut # (Auto) Lymph # (Auto) Page # (Auto) Eos # (Auto) Baso # (Auto) PT 9.9 INR 1.0 Sodium Potassium Chloride Carbon Dioxide Anion Gap BUN Creatinine Est Cr Clr Drug Dosing Est GFR ( Amer) Est GFR (Non-Af Amer) BUN/Creatinine Ratio Glucose POC Lactic Acid Bj 2.37 H Lactate 2.9 H* Calcium Total Bilirubin AST ALT Alkaline Phosphatase Total Protein Albumin Globulin Albumin/Globulin Ratio Lipase Urine Color Urine Appearance Urine pH Ur Specific [place] Urine Protein Urine Glucose (UA) Urine Ketones Urine Blood Urine Nitrite Urine Bilirubin Urine Urobilinogen Ur Leukocyte Esterase 07/22/18 07/22/18 07/22/18 06:28 06:28 06:28 WBC 11.81 H RBC 4.34 L Hgb 13.2 L Hct 39.8 L MCV 91.7 MCH 30.4 MCHC 33.2 RDW Std Deviation 43.8 RDW Coeff of Moshe 13.1 Plt Count 237 MPV 9.9 Immature Gran % (Auto) 0.2 Neut % (Auto) 72.4 Lymph % (Auto) 19.6 Page % (Auto) 6.3 Eos % (Auto) 1.3 Baso % (Auto) 0.2 Immature Gran # (Auto) 0.02 Neut # (Auto) 8.57 H Lymph # (Auto) 2.31 Page # (Auto) 0.74 H Eos # (Auto) 0.15 Baso # (Auto) 0.02 PT INR Sodium 136 Potassium 3.8 Chloride 104 Carbon Dioxide 25 Anion Gap 7.0 BUN 14 Creatinine 1.08 Est Cr Clr Drug Dosing 87.8 Est GFR ( Amer) 91.6 Est GFR (Non-Af Amer) 79.0 BUN/Creatinine Ratio 13.1 Glucose 107 H POC Lactic Acid Bj Lactate 1.9 Calcium 8.3 L Total Bilirubin 1.1 H D AST 159 H ALT 108 H Alkaline Phosphatase 48 Total Protein 7.2 Albumin 3.2 L Globulin 4.0 Albumin/Globulin Ratio 0.8 L Lipase Urine Color Urine Appearance Urine pH Ur Specific [place] Urine Protein Urine Glucose (UA) Urine Ketones Urine Blood Urine Nitrite Urine Bilirubin Urine Urobilinogen Ur Leukocyte Esterase Diagnostic Findings US abdomen limited CLINICAL HISTORY: 53 years-old Male presenting with RUQ pain. TECHNIQUE: Real-time grayscale and limited color Doppler ultrasound imaging of the abdomen limited to the right upper quadrant was performed. COMPARISON: CT performed earlier today. FINDINGS: Pancreas: Largely obscured due to overlying bowel gas. Liver: Hyperechogenic parenchyma with heterogeneous echotexture, likely indicating fibrosis or steatosis. The liver measures 17.1 cm in maximal sagittal dimension. No sonographic evidence of hepatic mass. Main portal vein patent with normal directional flow. Biliary: No intrahepatic biliary ductal dilatation. Common bile duct measures up to 4 mm in diameter. Gallbladder: Gallbladder sludge with small gallstones of the gallbladder neck. No evidence of gallbladder wall thickening, gallbladder distention, or pericholecystic fluid or inflammatory change. Sonographic Valladares's sign negative. Right kidney: Normal in appearance without evidence of hydronephrosis. Ascites: None. Other: None. IMPRESSION: 1. Gallbladder sludge with small gallstones. No biliary ductal dilatation. No convincing evidence of cholecystitis. If there is continuing clinical concern for this diagnosis, nuclear medicine HIDA scan could be obtained. 2. Hepatic steatosis. Correlate with liver function tests to exclude steatohepatitis as a cause for abdominal pain. CT abd pelvis wo con CLINICAL HISTORY: 53 years-old Male presenting with Eval for ureter calculi, right flank pain. TECHNIQUE: Multidetector CT of the abdomen and pelvis was performed without the use of intravenous contrast. IV contrast: None. A dose lowering technique was used consistent with the principles of ALARA (as low as reasonably achievable). COMPARISON: None. CT DOSE (mGy.cm): The estimated cumulative dose is 675.46 mGy.cm. FINDINGS: Auto Body Painter topogram: Vasectomy clips noted. Lung bases: Minimal dependent changes likely atelectasis. Normal heart size. No pericardial or pleural effusion. Liver: Normal morphology. Density consistent with hepatic steatosis. Biliary: No gross biliary ductal dilatation allowing for noncontrast technique. Normal gallbladder. Pancreas: Normal. Spleen: The appearance of the spleen suggest prior trauma or splenosis. Adrenal glands: Normal. Kidneys and ureters: Normal. No hydronephrosis. Bladder: Circumferential bladder wall thickening. Pelvic organs: Prostate enlargement likely secondary to benign prostatic hyperplasia. Vasectomy clips noted. Bowel: Few diverticula in the sigmoid colon and descending colon. No associated wall thickening or pericolonic inflammatory change. Feces noted in the distal small bowel suggesting delayed transit. The appendix is not visualized. No bowel obstruction. Peritoneal cavity: No free fluid or intraperitoneal gas. Lymph nodes: No gross lymphadenopathy allowing for noncontrast technique. Vasculature: Normal noncontrast appearance. Abdominal wall: Diastasis of the rectus abdominis. Musculoskeletal: Old left rib fractures noted. IMPRESSION: 1. Hepatic steatosis. Correlate with liver function tests to exclude steatohepatitis as a cause for abdominal pain. 2. No nephrolithiasis or hydronephrosis. 3. Circumference of bladder wall thickening may indicate chronic bladder obstruction in the setting of prostatomegaly. _ (1) Abdominal pain Abdominal location: right upper quadrant Qualified Code(s): R10.11 - Right upper quadrant pain
[2018-07-22] MEDS ORDERED: LORazepam 1 MG/2 ML VIAL IV PRN (08:59)
[2018-07-22] MEDS: THIAMINE HCL 100 MG TAB PO SCH (09:56)
--- NOTE | 2018-07-22 17:11 | Nuclear Medicine Report ---
HEPATOBILIARY SCAN CLINICAL HISTORY: GB sludge, stones, possible cholecystitis. COMPARISON STUDY: CT of the abdomen and pelvis and right upper quadrant ultrasound July 21, 2018 . TECHNIQUE: 5.5 mCi of technetium 99m Choletec was injected IV at 3:55 PM on July 22, 2018. Imagin g of the abdomen was carried out in the anterior projection immediately following the injection for 6 0 minutes. FINDINGS: Hepatic uptake of radiotracer is prompt and homogeneous. Activity is identified within the common bile duct and gallbladder at 10 minutes. Small bowel activity is noted at 20 minutes. IMPRESSION: No evidence for acute cholecystitis. Electronically signed by: Abel Gustafson M.D. 07/22/2018 5:09 PM
[2018-07-22] MEDS: cefTRIAXone SODIUM 1,000 MG in DEXTROSE 5% 50 ML IV SCH (21:03)
[2018-07-23 06:42] LABS: Basophils # (auto) 0.03 K/uL (0-0.2); Basophils % (auto) 0.3 %; Eosinophils # (auto) 0.21 K/uL (0-0.5); Eosinophils % (auto) 2.2 %; Hematocrit (blood only) 40.3 % (42-52); Hemoglobin 13.3 g/dL (14.0-18.0); Immature Granulocytes # (auto) 0.03 K/uL (0.00-0.02); Immature Granulocytes % (auto) 0.3 %; Lymphocytes # (auto) 2.29 K/uL (1.2-3.4); Lymphocytes % (auto) 23.5 %; Mean Platelet Volume 9.6 fL (7.4-10.4); Monocytes # (auto) 0.84 K/uL (0.11-0.59); Monocytes % (auto) 8.6 %; Neutrophils # (auto) 6.33 K/uL (1.4-6.5); Neutrophils % (auto) 65.1 %; Platelet Count 240 K/uL (130-400); RDW Standard Deviation 44.1 fL (36.4-46.3); Red Blood Count 4.38 M/uL (4.7-6.1); White Blood Count 9.73 K/uL (4.8-10.8)
[2018-07-23] MEDS ORDERED: fentaNYL citrate 100 MCG/2 ML VIAL ONE (07:15)
[2018-07-23] MEDS ORDERED: MIDAZOLAM HCL 1 MG/ML 2ML VIAL ONE (07:15)
[2018-07-23 07:18] LABS: Albumin Level 3.1 gm/dl (3.4-5.0); BUN Creatinine Ratio 11.4 (10-20); Bilirubin Direct 0.2 mg/dl (0-0.2); Calcium 8.4 mg/dl (8.5-10.1); Creatinine Clr Calc Pharmacy 88.6 ml/min; Est GFR (African American) 92.7; Potassium 3.8 mmol/L (3.5-5.1)
[2018-07-23] MEDS ORDERED: ROCURONIUM BROMIDE 10 MG/ML 5 ML VIAL ONE (07:20)
[2018-07-23] MEDS ORDERED: DEXAMETHASONE SOD INJ 4 MG/ML VIAL ONE (07:20)
[2018-07-23] MEDS ORDERED: PROPOFOL IV EMULSION 10 MG/ML 20 ML VIAL IV ONE (07:20)
[2018-07-23] MEDS ORDERED: LIDOCAINE HCL 2% 2 ML VIAL/AMP(20MG/ML) INFIL ONE (07:20)
[2018-07-23 07:23] LABS: Albumin Globulin Ratio 0.7 (0.9-2); Bilirubin,Total 0.5 mg/dl (0.1-1); Globulin 4.2 gm/dl (2.5-4.0); Total Protein 7.3 gm/dl (6.4-8.2)
[2018-07-23] MEDS ORDERED: ePHEDrine sulfate 50 MG/ML AMP IV PRN (07:26)
[2018-07-23] MEDS ORDERED: ONDANSETRON INJ 2 MG/ML 2 ML VIAL IV PRN (07:26)
[2018-07-23] MEDS ORDERED: HYDROmorphone INJ 2 MG/ML SYR/VIAL IV PRN (07:26)
[2018-07-23] MEDS ORDERED: ATROPINE SULFATE 0.1 MG/ML 5ML SYR IV PRN (07:26)
[2018-07-23] MEDS ORDERED: fentaNYL citrate 100 MCG/2 ML VIAL IV PRN (07:26)
[2018-07-23] MEDS ORDERED: DEXAMETHASONE SOD INJ 4 MG/ML VIAL IV PRN (07:26)
[2018-07-23] MEDS ORDERED: BUPIVACAINE 0.5 % 5 MG/1 ML MPF 30ML VIAL ONE (07:27)
--- NOTE | 2018-07-23 07:58 | Surgery Progress Note ---
Date of Service July 23, 2018 Assessment & Plan (1) Cholelithiasis: 53-year-old male with cholelithiasis and likely biliary colic. No evidence of acute cholecystitis on HIDA scan. I discussed the options with the patient to include continuing with planned laparoscopic cholecystectomy versus discharge home with follow-up as an outpatient. At this point the patient elects for laparoscopic cholecystectomy as he never want to have this pain again. Plan for laparoscopic cholecystectomy with possible cholangiogram The risk of the procedure were discussed to include but are not limited to bleeding, infection, retained stone, bile leak, need for future or more extensive surgery, conversion to open, damage surrounding structures, failure to treat symptoms, and the risk of anesthesia Surgery goes well patient does well, plan for discharge this afternoon Activity restrictions and wound care instructions reviewed Differential diagnosis, details the procedure and recovery, and plan of care discussed the patient, all questions were answered, the patient expressed understanding agrees the plan of care as stated. Present on Admission?: Yes Subjective 53-year-old male admitted with abdominal pain and cholelithiasis. He had a HIDA scan last night that showed no evidence of acute cholecystitis. This morning he states that he is not had pain since yesterday afternoon and has not required any pain medications. Physical Exam 2 Vital Signs (Past 24 Hours): Last Vital Signs Temp 37.2 C 07/23/18 07:51 Pulse 54 L 07/23/18 07:51 Resp 16 07/23/18 07:51 BP 108/71 07/23/18 07:51 Pulse Ox 94 07/23/18 07:51 Constitutional: WD/WN, vitals as above Gastrointestinal (Abdomen): normal bowel sounds, soft, nontender, no hepatosplenomegaly Results & Data Laboratory Results Laboratory Results - last 24 hr 07/22/18 07/22/18 07/23/18 09:10 09:10 06:28 WBC RBC Hgb Hct MCV MCH MCHC RDW Std Deviation RDW Coeff of Moshe Plt Count MPV Immature Gran % (Auto) Neut % (Auto) Lymph % (Auto) [place] % (Auto) Eos % (Auto) Baso % (Auto) Immature Gran # (Auto) Neut # (Auto) Lymph # (Auto) [place] # (Auto) Eos # (Auto) Baso # (Auto) Sodium Potassium Chloride Carbon Dioxide Anion Gap BUN Creatinine Est Cr Clr Drug Dosing Est GFR ( Amer) Est GFR (Non-Af Amer) BUN/Creatinine Ratio Glucose Calcium Total Bilirubin Direct Bilirubin AST ALT Alkaline Phosphatase Total Protein Albumin Globulin Albumin/Globulin Ratio Vitamin B12 1358 H Folate 23.15 Monoscreen Negative 07/23/18 07/23/18 06:28 06:28 WBC 9.73 RBC 4.38 L Hgb 13.3 L Hct 40.3 L MCV 92.0 MCH 30.4 MCHC 33.0 RDW Std Deviation 44.1 RDW Coeff of Moshe 13.0 Plt Count 240 MPV 9.6 Immature Gran % (Auto) 0.3 Neut % (Auto) 65.1 Lymph % (Auto) 23.5 [place] % (Auto) 8.6 Eos % (Auto) 2.2 Baso % (Auto) 0.3 Immature Gran # (Auto) 0.03 H Neut # (Auto) 6.33 Lymph # (Auto) 2.29 [place] # (Auto) 0.84 H Eos # (Auto) 0.21 Baso # (Auto) 0.03 Sodium 138 Potassium 3.8 Chloride 105 Carbon Dioxide 25 Anion Gap 8.0 BUN 12 Creatinine 1.07 Est Cr Clr Drug Dosing 88.6 Est GFR ( Amer) 92.7 Est GFR (Non-Af Amer) 80.0 BUN/Creatinine Ratio 11.4 Glucose 100 H Calcium 8.4 L Total Bilirubin 0.5 D Direct Bilirubin 0.2 AST 79 H ALT 173 H Alkaline Phosphatase 61 Total Protein 7.3 Albumin 3.1 L Globulin 4.2 H Albumin/Globulin Ratio 0.7 L Vitamin B12 Folate Monoscreen Diagnostic Findings US abdomen limited CLINICAL HISTORY: 53 years-old Male presenting with RUQ pain. TECHNIQUE: Real-time grayscale and limited color Doppler ultrasound imaging of the abdomen limited to the right upper quadrant was performed. COMPARISON: CT performed earlier today. FINDINGS: Pancreas: Largely obscured due to overlying bowel gas. Liver: Hyperechogenic parenchyma with heterogeneous echotexture, likely indicating fibrosis or steatosis. The liver measures 17.1 cm in maximal sagittal dimension. No sonographic evidence of hepatic mass. Main portal vein patent with normal directional flow. Biliary: No intrahepatic biliary ductal dilatation. Common bile duct measures up to 4 mm in diameter. Gallbladder: Gallbladder sludge with small gallstones of the gallbladder neck. No evidence of gallbladder wall thickening, gallbladder distention, or pericholecystic fluid or inflammatory change. Sonographic Valladares's sign negative. Right kidney: Normal in appearance without evidence of hydronephrosis. Ascites: None. Other: None. IMPRESSION: 1. Gallbladder sludge with small gallstones. No biliary ductal dilatation. No convincing evidence of cholecystitis. If there is continuing clinical concern for this diagnosis, nuclear medicine HIDA scan could be obtained. 2. Hepatic steatosis. Correlate with liver function tests to exclude steatohepatitis as a cause for abdominal pain. HEPATOBILIARY SCAN CLINICAL HISTORY: GB sludge, stones, possible cholecystitis. COMPARISON STUDY: CT of the abdomen and pelvis and right upper quadrant ultrasound July 21, 2018. TECHNIQUE: 5.5 mCi of technetium 99m Choletec was injected IV at 3:55 PM on July 22, 2018. Imaging of the abdomen was carried out in the anterior projection immediately following the injection for 60 minutes. FINDINGS: Hepatic uptake of radiotracer is prompt and homogeneous. Activity is identified within the common bile duct and gallbladder at 10 minutes. Small bowel activity is noted at 20 minutes. IMPRESSION: No evidence for acute cholecystitis. _ (1) Cholelithiasis Biliary obstruction: without biliary obstruction Cholangitis acuity: Cholangitis presence: Cholecystitis acuity: Cholecystitis presence: without cholecystitis Cholelithiasis location: gallbladder Qualified Code(s): K80.20 - Calculus of gallbladder without cholecystitis without obstruction
--- NOTE | 2018-07-23 08:10 | Anesthesiology Consultation ---
Date of Service July 23, 2018 Assessment & Plan ASA ASA2 Proposed Anesthesia Anesthesia Type: General NPO Date Last Intake of Fluids: 07/22/18 Time Last Intake of Fluids: 00:00 Date Last Intake of Solids: 07/22/18 Time Last Intake of Solids: 20:00 History Surgery Operation Date: 07/23/18 07:25 Proposed Procedures p Laparoscopic Cholecystectomy, Possible Cholangiogram - Carlin Hernandez DO, FACS Height/Weight Height: 5 ft 5 in Weight: 99.5 kg Allergies Allergy/AdvReac Type Severity Reaction Status Date / Time No Known Allergies Allergy Verified 07/21/18 15:30 Medications Home Medications Medication Instructions Recorded Confirmed Last Taken bupropion HCl 150 mg PO BID 06/07/18 07/21/18 07/21/18 cholecalciferol (vitamin D3) 50,000 unit PO WK 06/07/18 07/21/18 07/21/18 [Optimal D3] citalopram 40 mg PO QAM 06/07/18 07/21/18 07/21/18 fenofibrate nanocrystallized 145 mg PO QAM 06/07/18 07/21/18 07/21/18 omega-3 fatty acids-fish oil [Fish 2 cap PO QAM 06/07/18 07/21/18 07/21/18 Oil] pantoprazole 40 mg PO QAM 06/07/18 07/21/18 07/21/18 Active Medications Generic Name Dose Route Start Last Admin Trade Name Freq PRN Reason Stop Dose Admin Bupropion HCl 150 mg 07/21/18 21:15 07/22/18 21:02 Wellbutrin-Sr PO 08/20/18 21:14 150 mg BID JARED Administration Citalopram Hydrobromide 40 mg 07/22/18 09:00 07/22/18 08:27 Celexa PO 08/21/18 08:59 40 mg QAM JARED Administration Fenofibrate 145 mg 07/22/18 09:00 07/22/18 08:27 Tricor PO 08/21/18 08:59 145 mg QAM JARED Administration Ceftriaxone Sodium 1,000 mg/ 60 mls @ 100 mls/hr 07/21/18 21:30 07/22/18 21: 52 Dextrose IV 07/31/18 21:29 Infused Q24H JARED Infusion Protocol Sodium Chloride 1,000 mls @ 125 mls/hr 07/21/18 22:30 07/23/18 06:21 Nss 1000ml IV 08/20/18 22:29 125 mls/hr .Q8H JARED Infusion Miscellaneous 1 ea 07/22/18 00:00 07/22/18 23:30 Order Awaiting Action N/A 08/21/18 00:00 Not Given QS JARED Morphine Sulfate 4 mg 07/21/18 21:06 07/22/18 18:50 Morphine Sulfate IV 08/04/18 21:05 4 mg Q6H PRN Administration Moderate Pain Pantoprazole Sodium 40 mg 07/22/18 09:00 07/22/18 08:27 Protonix PO 08/21/18 08:59 40 mg QAM JARDE Administration Thiamine HCl 100 mg 07/22/18 09:00 07/22/18 09:56 Vitamin B-1 PO 08/21/18 08:59 100 mg QAM JARED Administration Past Medical History Medical History Cholelithiasis (Acute) RICK (obstructive sleep apnea) Alcohol use Depression Hypercholesterolemia GERD (gastroesophageal reflux disease) Anxiety Depression GERD (gastroesophageal reflux disease) Hyperlipidemia Sleep apnea wears mouth guard, no CPAP Past Family History Family History Brother Family history of diabetes mellitus Mother Family history of diabetes mellitus Past Surgical History Surgical History History of appendectomy History of tooth extraction wisdom teeth Hx of abdominal surgery ruptured spleen "procedure to stop bleeding, filled with foam", was not removed Hx of vasectomy Social History Smoking Status: Never smoker tobacco type: smokeless tobacco Do You Dip or Chew Tobacco: Yes Hx Alcohol Use: Yes Alcohol type: beer alcohol intake frequency: 3 or more drinks per day Alcohol Intake Frequency Comment: Patient states he limits it to 5 drinks on weekdays & 10 drinks on weekends Hx Substance Use: No substance use type: does not use Physical Exam Vital Signs Last Vital Signs Temp 37.2 C 07/23/18 07:51 Pulse 54 L 07/23/18 07:51 Resp 16 07/23/18 07:51 BP 108/71 07/23/18 07:51 Pulse Ox 94 12/24/18 07:51 Testing Chest X-Ray Date: 07/21/18 Mild cardiomegaly. No other convincing evidence of acute cardiopulmonary disease. 2. Subacute to chronic posterior lateral left rib fractures. Laboratory Results 07/23/18 06:28 07/23/18 06:28 PT 9.9 Seconds (9.0-12.0) 07/21/18 16:09 INR 1.0 (0.9-1.1) 07/21/18 16:09 Urine Color Yellow 07/21/18 15:40 Urine Appearance Clear (Clear) 07/21/18 15:40 Urine pH 7.0 (4.5-7.5) 07/21/18 15:40 Ur Specific [place] 1.020 (1.000-1.030) 07/21/18 15:40 Urine Protein Negative (Negative) 07/21/18 15:40 Urine Glucose (UA) Negative (Negative) 07/21/18 15:40 Urine Ketones Negative (Negative) 07/21/18 15:40 Urine Nitrite Negative (Negative) 07/21/18 15:40 Ur Leukocyte Esterase Negative (Negative) 07/21/18 15:40 07/21/18 17:31 Blood Culture - Preliminary Blood No growth to date. 07/21/18 17:24 Blood Culture - Preliminary Blood No growth to date.
[2018-07-23] MEDS ORDERED: LACTATED RINGER'S 1,000 ML IV SCH (08:30)
[2018-07-23] MEDS ORDERED: ePHEDrine sulfate 50 MG/ML AMP ONE (08:43)
[2018-07-23] MEDS ORDERED: CEFAZOLIN 250 MG/ML 1 GM VIAL ONE (08:43)
[2018-07-23] MEDS ORDERED: CEFAZOLIN 2000MG 2,000 MG/15 ML SYR IV SCH ×2 (08:45→09:03)
[2018-07-23] MEDS ORDERED: GLYCOPYRROLATE 0.2 MG/ML VIAL ONE (08:56)
[2018-07-23] MEDS ORDERED: NEOSTIGMINE METHYLSULFATE 5 MG/5 ML SYR ONE (08:56)
[2018-07-23] MEDS ORDERED: MULTIVITAMIN TAB PO SCH (09:00)
--- NOTE | 2018-07-23 09:13 | Operative Report ---
Post Operative Report Date of Surgery July 23, 2018 Pre & Post Diagnosis Operation Date: 07/23/18 07:25 Pre-Op Diagnosis: Cholelithiasis with Biliary Colic Post-Op Diagnosis: Acute cholecystitis Procedure Operation Date: 07/23/18 07:25 Actual Procedures p Laparoscopic Cholecystectomy, Possible Cholangiogram(Not Applicable) - Carlin Hernandez DO, NEIL Surgeon Carlin Hernandez DO, NEIL News Content Specialist Raymond Wade PA-C Estimated Blood Loss 6 Findings Consistent with Post-Op Diagnosis Acute cholecystitis. Window of safety obtained, cystic duct and artery doubly clipped and divided. Specimens Gallbladder Anesthesia Type General Complications none Disposition Accompanied Patient To Recovery: No Disposition: Recovery Room Indications 53-year-old male admitted with right upper quadrant pain and cholelithiasis, concern for acute cholecystitis the negative HIDA. Plan for laparoscopic cholecystectomy with possible cholangio-gram. The risks of the procedure were discussed, all questions were answered, and the patient agreed to proceed with surgery as planned. Description of Procedure The patient was properly identified, consented, and taken to the operating room where he was placed in the supine position. General endotracheal anesthesia was induced. SCDs and a safety belt were placed. Preoperative antibiotics were administered. The patient's abdomen was prepped and draped in the standard sterile fashion. A surgical timeout was performed and all parties were in agreement that this was the correct patient and procedure to be performed and we continued as planned. An incision was made superior and to the left of the umbilicus overlying the rectus muscle and the Veress needle was inserted. Saline drop test confirmed entry into the peritoneum. The abdomen was insufflated with carbon dioxide which the patient tolerated without incident. The abdomen was then entered using the Optiview technique and a 5 mm trocar. The laparoscope was inserted and no damage from initial trocar or Veress needle placement was noted, no gross abnormalities were noted within the 4 quadrants of the abdomen. An 11 mm port was placed in the subxiphoid position and two 5 mm ports were then placed in the right subcostal position. The patient was placed in reverse Trendelenburg position and rotated towards the left. The gallbladder was acutely inflamed. The dome of the gallbladder was retracted towards the left upper quadrant and the infundibulum was retracted toward the right lower quadrant revealing Calot's triangle. Peritoneal attachments were taken down with electrocautery and blunt dissection. The cystic duct and artery were circumferentially dissected. A window of safety was obtained showing the cystic duct entering the gallbladder with no aberrant structures noted. The cystic duct and artery were doubly clipped and divided. The gallbladder was then lifted off the gallbladder fossa with electrocautery. A small accessory vessel was encountered and clipped and divided. The gallbladder was placed in an Endo Catch bag and removed through the subxiphoid port site. The right upper quadrant was irrigated and hemostasis was found to be good. 5 mm trochars were removed under direct visualization and the abdomen was allowed to collapse. The subxiphoid port site fascia was closed with 0 Vicryl suture. The wound was irrigated, and the skin of all ports was closed with 4-0 Monocryl subcuticular sutures. Dermabond was placed over the wounds. The patient was extubated in the operating room and taken to the PACU where he recovered without apparent incident. All sponge, instrument and needle counts were correct at the conclusion of the procedure. The patient tolerated the procedure well. The physician's branch assistant was present and scrubbed for the entirety of the case and was essential in positioning the patient, prepping and draping, retraction and exposure, driving the laparoscope, removal of the gallbladder, closure the incisions, and placement of the dressings. I attest to the content of the Intraoperative Record and any orders documented therein. Any exceptions are noted below.
[2018-07-23] MEDS ORDERED: MoRPHine SULFATE 4 MG/ML 1 ML CARP\\VIAL IV PRN (10:22)
[2018-07-23] MEDS ORDERED: OXYCODONE/ACETAMINOPHEN 5mg/325mg TAB PO PRN (10:22)
--- NOTE | 2018-07-23 10:29 | Anesthesiology Progress Note ---
Date of Service July 23, 2018 Anesthesia Post Procedure Vital Signs Vital Signs: Temp Pulse Pulse Resp BP BP Pulse Ox 07/23/18 10:05 68 19 116/71 94 07/23/18 09:55 36.4 C L 75 20 125/72 96 07/23/18 09:45 79 19 125/65 98 07/23/18 09:35 78 21 126/79 96 07/23/18 09:25 36.4 C L 91 H 16 147/79 H 97 07/23/18 07:51 37.2 C 54 L 16 108/71 94 07/23/18 07:16 36.9 C 57 L 18 114/71 95 07/23/18 00:00 07/22/18 22:58 37.2 C 67 18 107/70 92 07/22/18 15:21 95/57 L 07/22/18 15:19 37.1 C 59 L 16 89/53 L 90 Pulse Ox 07/23/18 10:05 07/23/18 09:55 07/23/18 09:45 07/23/18 09:35 07/23/18 09:25 07/23/18 07:51 07/23/18 07:16 07/23/18 00:00 92 07/22/18 22:58 07/22/18 15:21 07/22/18 15:19 Pain Intensity Right Back: Pain Intensity: 7 Right Abdomen: Pain Intensity: 6 Notes Mental Status: alert / awake / arousable and participated in evaluation Patient Amnestic to Procedure: Yes Nausea / Vomiting: adequately controlled Pain: adequately controlled Airway Patency, RR, SpO2: stable & adequate BP & HR: stable & adequate Hydration State: stable & adequate Anesthetic Complications: no major complications apparent
[2018-07-23] MEDS: FENOFIBRATE NANOCRYSTALLIZED 145 MG TABLET PO SCH (10:31)
[2018-07-23] MEDS: CITALOPRAM 40 MG TAB PO SCH (10:32)
[2018-07-23] MEDS: PANTOprazole 40 MG TAB PO SCH (10:32)
[2018-07-23] MEDS: BuPROPion SR 150 MG TABCR PO SCH (10:32)
[2018-07-23] MEDS: THIAMINE HCL 100 MG TAB PO SCH (10:32)
[2018-07-23] MEDS: SODIUM CHLORIDE 0.9% 1000ML 1,000 ML IV SCH (11:34)
--- NOTE | 2018-07-23 13:57 | Discharge Summary ---
Date of Service July 23, 2018 Admission HPI Per Admitting Provider Mr. Nguyen is a 53-year-old gentleman with a history of anxiety, depression, GERD , hypercholesterolemia, and obstructive sleep apnea who presented to [facility] due to sudden onset of right flank pain that radiated to the front of his abdomen. He states that he was at his florez at 10 AM when he had the sudden onset of 9/10 right flank pain that radiated to the right side of his abdomen. He states the pain was constant, and felt like gas pain. Denies fever or chills, but states that at this time he broke out into a sweat. He also reports feeling nauseous, with dry heaves. He has never had this kind of pain before. He denies chest pain, shortness of breath, palpitations. He states that his last bowel movement was about 15 minutes prior to the start of this pain and was normal. He ate breakfast at 9 AM this morning, and states that he ate carrera and a louise. Prior to this, he states that he has been feeling well. His appetite had been normal. He denies any sick contacts, or recent travel. Denies urinary symptoms , such as dysuria or hematuria. He denies a history of prior back problems, or trouble with his gallbladder. He has no cardiac history, and has no trouble with chest pain on exertion. Of note, he is a non-smoker and does not use recreational drugs. He states that he drinks about 25 beers a week, and states that he has cut back recently. He drinks on a daily basis, and his last drink was last night. He denies a history of alcohol withdrawals. At the time of my exam, he states his pain is down to a 5/10. He reports improvement in his pain with morphine. Principal Diagnosis Acute Cholecystitis w Laparoscopic Cholecystectomy Discharge Exam Subjective: Pt seen post op. States his pain is well controlled. Understand the goals of care and physiologic landmarks required before discharge. at bedside. Pt is tolerating PO. Hasn't had flatus or bowel movement. Constitutional WD/WN, vitals as above well developed, well nourished, + well hydrated, + obese, healthy appearing, cooperative and + overweight; no acute distress, not ill appearing, no altered mental status, no physical limitations and not diaphoretic Eyes PERRL, conjunctivae normal, anicteric sclerae ENMT external ear and nose normal, oropharynx normal Mouth: no oral mucosal abnormality, no dentures, no chipped teeth and no loose teeth Mallampati Class: II Neck trachea midline, no thyromegaly normal visual inspection and trachea midline Respiratory normal respiratory effort, lungs clear to auscultation no cough Auscultation: lungs clear to auscultation bilaterally; no crackles, no rales, no rhonchi, no wheezes and no pleural rub Cardiovascular RRR, no murmur, no edema Rate/Rhythm: regular rate and regular rhythm Heart Sounds: normal S1 and normal S2 Vessels: no JVD and no carotid bruit Extremities: normal capillary refill; no calf tenderness and no edema Gastrointestinal (Abdomen) Inspection/Auscultation: normal bowel sounds; no visible herniation Percussion/Palpation: no guarding, no hepatosplenomegaly, no hernia and no ascites Post surgical scars from lap sander. Abdomen mildly tender to deep palpation. No rebound. There is a large hemangioma (chronic) on the right side of the abdomen. Musculoskeletal no cyanosis or clubbing, extremities motor strength 5/5 Head/Neck/Chest: normocephalic, head atraumatic and neck supple Spine: thoracic spine normal to inspection and lumbar spine normal to inspection ; no lumbar spinal tenderness and no paraspinal tenderness Extremities: extremities normal to inspection; no cyanosis and no clubbing Gait: normal gait Skin no rashes, warm and dry Trauma: no evidence of skin trauma Neurologic PERRL, EOMI, accommodation nl, no face palsy, no dysarthria normal touch/pain/proprioception, CN's II-XI intact bilaterally, moves all extremities and awake; no focal motor deficits and not confused Speech / Cognition: normal speech Motor/Sensory: no tremor and no sensory deficit Psychiatric A+Ox3, euthymic affect Orientation: alert, oriented x 3 and cooperative Apperance: appropriately dressed Eye Contact: good eye contact Motor Behavior: steady gait and station Speech: normal rate/rhythm/volume of speech Lymphatic no cervical or axillary lymphadenopathy Discharge Data Allergies Allergy/AdvReac Type Severity Reaction Status Date / Time No Known Allergies Allergy Verified 07/21/18 15:30 Consultations 07/21/18 19:42 ED Decision to Admit Stat 07/21/18 21:06 Consult General Surgery Routine 07/22/18 08:59 Consult Case Management - Discharge Planning Routine Procedures Performed Operation Date: 07/23/18 07:25 Actual Procedures p Laparoscopic Cholecystectomy(Not Applicable) - Carlin Hernandez DO, FACS Ordered Studies 07/21/18 15:38 CT abd pelvis wo con Stat 07/21/18 17:44 US abdomen limited Stat Hospital Course (1) Abdominal pain: 53yo male with pMHx HLD, GERD, RICK, EtOH use who presented to [facility] with sudden onset of right flank pain that radiated to the front of his abdomen and admitted for concerns of cholecystisis. # Abdominal Pain secondary to Acute Cholecystitis Pt admitted on 07/21/18 for suspected cholecystitis, pt received 1 L normal saline bolus, 4 mg of morphine x2 and Zofran in the emergency department. On admission: WBC 15.97, lactate of 2.37, peaked at 2.9, LFTs initially WNL and elevated on Hospital Day #1. Rocephine started on Admission. CT abdo/pelvis with hepatic steatosis, but no nephrolithiasis. Abdo U/S with GB sludge and small gallstones, without evidence for cholecystitis or ductal dilation. Gen surg consulted, after shared decision making with patient, laparoscopic cholecystectomy was performed on 07/23/18. Pt's diet was gradually progressed, he tolerated regular diet, was passing flatus and was clinically stable for discharge. #Alcohol use: Patient is a daily drinker, does not have a history of alcohol withdrawal. s/p banana bag x 2 PRN Ativan ordered. B12 and Folate within normal ranged. #GERD (gastroesophageal reflux disease): Continued home pantoprazole # Hypercholesterolemia: Continued home fenofibrate and omega-3 fatty acids # Depression: Continued home bupropion and citalopram #RICK (obstructive sleep apnea): Patient states he does not use CPAP Continued use of mouth guard #VTE (venous thromboembolism): Lovenox on admission and eventually SCDs for possible surgical intervention. (2) Alcohol use: (3) GERD (gastroesophageal reflux disease): (4) Hypercholesterolemia: (5) Depression: (6) RICK (obstructive sleep apnea): (7) VTE (venous thromboembolism): Total Time Total Time Spent Total Time Spent (In Minutes): 43 Discharge Plan Discharge Items Patient Disposition: Home - Self-Care Reason For Visit: ABDOMINAL PAIN, ELEVATED WCC AND LACTATE Discharge Diagnosis: Acute Cholecystitis, laparoscopic cholecystectomy Discharge Goals: Decrease discomfort Activity: Per 'Additional Instructions' section Lifting: No more than 10 pounds Bathing: No limitations Driving/Machine Use: Resume 3 days after discharge Non-emergency contact: Surgeon Call non-emergency contact if: you have any medication questions, your pain is not controlled, you have a fever and your temperature is above 101.5 Follow-up/Referrals: Matti Husain MD [Primary Care Provider] - 08/01/18 9:30 am (Please, follow up at Dr. Husain's office with Anamika Pham PA-C on MondayAugust 01 at 9:30 am. *If you need to change this appointment, call the office at [phone].) Carlin Hernandez DO, NEIL [Physician] - (Call to make an appt in 2 weeks *Please, call his office to make an appointment. The office phone number is [phone].) Diet: Regular Addtl Provider Instructions: You are being discharged for acute cholecystitis (inflammation of the gallbladder). To treat this condition you were given antibiotics and your gallbladder was removed. You are being discharged on pain medication called Percocet. Please take these medications as prescribed. Important signs to show that your body is healing properly are the resumption of normal bodily activities such as bowel movements and passing gas. These bodily functions should normalize over the next few days. Return to the ER if you are experiencing worsening abdominal pain, fevers, chills or intractable vomiting. Follow up with Dr. Hernandez and your Primary Care Doctor will be made for you. Please keep these appointments. Prescriptions: New oxycodone-acetaminophen [Percocet] 5-325 mg tablet 1 - 2 tab PO Q4H PRN (Reason: pain) Qty: 15 RF: 0 Continue citalopram 40 mg Tablet 40 mg PO QAM RF: 0 pantoprazole 40 mg Tablet,Delayed Release (Dr/Ec) 40 mg PO QAM RF: 0 bupropion HCl 150 mg Tablet Extended Release 24 Hr 150 mg PO BID RF: 0 fenofibrate nanocrystallized 145 mg Tablet 145 mg PO QAM RF: 0 cholecalciferol (vitamin D3) [Optimal D3] 50,000 unit Capsule 50,000 unit PO WK RF: 0 omega-3 fatty acids-fish oil [Fish Oil] 360-1,200 mg Capsule 2 cap PO QAM RF: 0 Stand-Alone Forms: My [facility] [employer], Opioid Pain Management [employer]/Other Patient Handouts: Cholecystectomy Laparoscopic Discharge Orders: Discharge Order (Routine); Ordered 07/23/18 Ordered By: Pete Garcia Admission Data Admit Date/Time: 07/21/18 20:14 Attending Provider: Young Duncan Admit Provider: Guerline Carrero Primary Care Provider: Matti Husain Other Providers: Eusebia Solis ; Melanie Blackmon ; Carlin Hernandez Service: Medical Other Interventions: Discharge Summary Assessment (RN) Last Done: 07/23/18 14:20 Supervising Physician Co-Signing Physician Notes Resident Physician Supervision Note: I was present with Dr. Krishnamurthy during the history and exam. I discussed the case with the resident and agree with the findings and plan as documented in the note. Any exceptions or clarifications are listed here: None This pt had cholecystectomy, did well post op tolerated oral intake and ambulation vitals signs stable abd is soft and mildly tender will discharge home with surgery folllow up Documented By: Young Duncan MD
[2018-07-25 08:57] LABS: EBV Nuclear Ag Antibody < 18.00 U/ML; Epstein Barr Virus Early Ag Ab 9.36 U/ML
[2018-07-28] MEDS ORDERED: ERGOCALCIFEROL 50,000 UNITS CAP PO SCH (09:00)
== END 2018-07-23 17:10 | disposition home or self-care (01) ==
LOC: 3W 15:11 → ED 15:11 → SUATTDRO 20:14 → 3W 20:52